=== PATIENT | female | born 1970 | race Caucasian/White ===

== ENCOUNTER 2021-06-08 15:08 | Emergency (ER) | payer BC ==
[2021-06-08 15:16] VITALS: BP 137/79
--- NOTE | 2021-06-08 16:00 | XRAY Report ---
PROCEDURE: Sacrum/Coccyx INDICATIONS: fall off horse, coccyx pain TECHNIQUE: 3 views of the sacrum and coccyx acquired. COMPARISON: None FINDINGS: Bones: No fractures or dislocations. No suspicious bony lesions. Soft tissues: Visualized bowel gas pattern is normal. No suspicious soft tissue densities. IMPRESSION: No coccyx fracture. Reviewed by: Leigh Loomis MD, PhD on 06/08/2021 3:59 PM PDT Approved by: Leigh Loomis MD, PhD on 06/08/2021 3:59 PM PDT Station ID: [id number]
--- NOTE | 2021-06-08 16:37 | ED Physician Documentation ---
History of Present Illness - Stated complaint Stated Complaint: TAILBONE PX - Chief complaint Chief Complaint: Trauma Ch/Bk - History obtained from History obtained from: Patient - History of Present Illness Timing: Today Pain level max: 5 Pain level now: 5 - Additonal information Additional information: Patient is a 51-year-old female visiting from [place]. She was riding a horse today when she fell off of the horse landing on her sacrum and coccyx. Complains of pain to the area. Worse with sitting and movement. Nothing makes it better. No neck or back pain. Review of Systems Constitutional: denies: Fever : denies: Incontinent, Hematuria Musculoskeletal: denies: Neck pain, Back pain Neurologic: denies: Focal weakness, Numbness PD PAST MEDICAL HISTORY - Past Medical History Past Medical History: No - Past Surgical History Past Surgical History: No - Allergies Allergies/Adverse Reactions: Allergies Allergy/AdvReac Type Severity Reaction Status Date / Time No Known Drug Allergies Allergy Verified 06/08/21 15:13 - Living Situation Living Arrangement: reports: At home - Social History Does the pt have substance abuse?: No PD ED PE NORMAL - Vitals Vital signs reviewed: Yes - General General: Alert and oriented X 3, No acute distress - HEENT HEENT: Moist mucous membranes - Neck Neck: Supple, no meningeal sign - Back Back: Other (Tender to palpation over the sacrum and coccyx. No ecchymosis. No swelling. No deformity. Otherwise normal examination of the spines.) - Derm Derm: Warm and dry - Neuro Neuro: Alert and oriented X 3 Results - Vitals Vitals: Vital Signs - 24 hr 06/08/21 15:13 Temperature 36.5 C Heart Rate 76 Respiratory 16 Rate Blood Pressure 137/79 H O2 Saturation 100 Oxygen O2 Source Room air - Rads (name of study) Sacrum/coccyx x-ray Radiology: Final report received, EMP read contemporaneously, See rad report (No acute abnormality) PD MEDICAL DECISION MAKING - ED course Complexity details: reviewed results, considered differential, d/w patient ED course: Patient with what appears to be a sacral/coccygeal contusion. No acute findings on x-ray. Ambulating without difficulty. We will continue supportive care and have her follow-up with her doctor for further care. Patient counseled regarding signs and symptoms for which I believe and urgent re-evaluation would be necessary. Patient with good understanding of and agreement to plan and is comfortable going home at this time This document was made in part using voice recognition software. While efforts are made to proofread this document, sound alike and grammatical errors may occur. Departure - Departure Disposition: 01 Home, Self Care Clinical Impression: Sacral contusion Qualifiers: Encounter type: initial encounter Qualified Code(s): S30.0XXA - Contusion of lower back and pelvis, initial encounter Condition: Good Instructions: ED Contusion Sacrum Coccyx Follow-Up: your,doctor in 1 week if not better [Other] Comments: Your x-ray does not show any fractures today. You can use Motrin, Aleve, or Tylenol as needed for pain. Ice may help as well. Return if you worsen. Discharge Date/Time: 06/08/21 16:46
== END 2021-06-08 16:46 | disposition home or self-care (01) ==
LOC: ED 15:08
DX: S30.0XXA Contusion of lower back and pelvis, initial encounter (principal); V80.010A Animal-rider injured by fall from or being thrown from horse in noncollision accident, initial encounter; Y93.52 Activity, horseback riding
CPT/HCPCS: 99283; 99284